=== PATIENT | female | born 1965 | race Two or more races ===

== ENCOUNTER 2021-11-10 11:23 | Outpatient (REF) | payer OTHER, SELFPAY ==
--- NOTE | ~2021-11-10 | XR_ITS ---
EXAMINATION: XR HAND, RIGHT CLINICAL INFORMATION: Pain COMPARISON: None TECHNIQUE: PA, lateral, and oblique views of the right hand. FINDINGS: The bones and soft tissues are normal. No fracture. Alignment is anatomic. Joint spaces are maintained. No erosions or soft tissue calcifications. XR/XR hand RT min 3V IMPRESSION: Normal right hand.
[2021-11-10 13:45] LABS: MANUAL DIFF FLAG NO
[2021-11-10 13:50] LABS: Basophils Percent Auto 0.2 % (0-2); Eosinophils Absolute Auto 0.2 X10*3/uL (0.0-0.4); Eosinophils Percent Auto 3.4 % (0-4); Hematocrit 41.7 % (37.0-47.0); Hemoglobin 13.5 g/dl (12.0-16.0); Imm Gran Abs Auto 0.01 X10*3/uL (0.00-0.03); Imm Gran Pct Auto 0.2 % (0.0-0.4); Lymphocytes Percent Auto 45.7 % (20-40); Mean Corpuscular HGB Conc 32.4 g/dl (31.0-35.0); Mean Corpuscular Hemoglobin 27.1 pg (27.0-33.0); Mean Corpuscular Volume 83.7 fL (80.0-98.0); Mean Platelet Volume 9.6 fL (9.4-12.3); Monocytes Absolute Auto 0.4 X10*3/uL (0.1-1.2); Monocytes Percent Auto 9.5 % (2-11); Neutrophils Absolute Auto 1.8 x10*3/uL (2.0-8.3); Platelet Count 278 X10*3/uL (160-400); Red Blood Count 4.98 X10*6/uL (4.20-5.50); White Blood Count 4.4 X10*3/uL (4.8-10.8)
[2021-11-10 14:06] LABS: Alanine Aminotransferase 24 U/L (0-31); Anion Gap 10 (12-20); Aspartate Amino Transferase 21 U/L (5-31); Blood Urea Nitrogen 14 mg/dL (9-16); Carbon Dioxide 29 mmol/L (22-29); Chloride 102 mmol/L (96-108); Cholesterol 227 mg/dL; Estimated Glomerular Filt Rate > 60; Glucose Fasting 97 mg/dL (60-99); HDL Cholesterol 50 mg/dL; LDL Cholesterol Calculated 164 mg/dl; Potassium 4.3 mmol/L (3.3-5.1); Sodium 137 mmol/L (135-145); Triglycerides 67 mg/dL
[2021-11-10 14:27] LABS: Free T4 (Free Thyroxine) 1.18 ng/dL (0.71-1.85); Vitamin D 25-OH Total 24.7 ng/mL (>30)
== END 2021-11-10 11:24 | disposition home or self-care (01) ==
LOC: HO.HMGCLDS 11:23
PROVIDERS: Visit Provider Internal Medicine
DX: Z00.01 Encounter for general adult medical examination with abnormal findings (principal); E03.9 Hypothyroidism, unspecified; Z78.0 Asymptomatic menopausal state
CPT/HCPCS: 36415; 73130; 80048; 80061; 82306; 84439; 84443; 84450; 84460; 85025

== ENCOUNTER 2022-01-09 09:31 | Outpatient (REF) | payer MEDICAID, SELFPAY ==
--- NOTE | ~2022-01-09 | MM_ITS ---
EXAMINATION: MM SCREENING DIGITAL BREAST TOMOSYNTHESIS, BILATERAL CLINICAL INFORMATION: Screening. Asymptomatic. Prior outside mammography currently unavailable. The lifetime risk of breast cancer based on the Tyrer-Cuzick Model is 8%. COMPARISON: None. TECHNIQUE: Digital breast tomosynthesis is performed in both the craniocaudal and mediolateral oblique views along with computer-aided detection (CAD). Synthesized 2D images are generated from the tomosynthesis. FINDINGS: There are scattered areas of fibroglandular density (ACR BI-RADS breast composition Category b). There are no significant masses, abnormal calcifications, or other abnormalities. No architectural abnormality. The axilla and skin contours are unremarkable. MM/MM tomosynthesis screening BI IMPRESSION: No mammographic evidence of malignancy. ASSESSMENT: BI-RADS 1: Negative RECOMMENDATION: 1. Routine annual mammography screening. 2. Radiology department staff will attempt to retrieve prior outside mammography to allow for comparison in an addendum report. This patient's information was entered into a reminder system with a target due date for their next mammogram.
== END 2022-01-09 09:32 | disposition home or self-care (01) ==
LOC: HO.MAMMO 09:31
PROVIDERS: PCP Internal Medicine; Visit Provider Internal Medicine
DX: Z12.31 Encounter for screening mammogram for malignant neoplasm of breast (principal)
CPT/HCPCS: 77063; 77067

== ENCOUNTER 2022-03-16 08:53 | Outpatient (REF) | payer MEDICAID, SELFPAY ==
[2022-03-16 12:14] LABS: Free T4 (Free Thyroxine) 1.15 ng/dL (0.71-1.85); Thyroid Stimulating Hormone 1.56 uIU/mL (0.32-4.0); Vitamin D 25-OH Total 50.4 ng/mL (>30)
== END 2022-03-16 08:54 | disposition home or self-care (01) ==
LOC: HO.HMGCLDS 08:53
PROVIDERS: PCP Internal Medicine; Visit Provider Internal Medicine
DX: E03.9 Hypothyroidism, unspecified (principal); E55.9 Vitamin D deficiency, unspecified
CPT/HCPCS: 36415; 82306; 84439; 84443

== ENCOUNTER 2022-03-30 09:00 | Outpatient (REF) | payer MEDICAID, SELFPAY ==
--- NOTE | ~2022-03-30 | XR_ITS ---
EXAMINATION: XR KNEE, LEFT CLINICAL INFORMATION: Pain left knee. COMPARISON: None TECHNIQUE: Four views of the left knee. FINDINGS: Bones and soft tissues are normal. No fracture or joint effusion. Alignment is anatomic. Joint spaces are well maintained. No abnormal soft tissue calcification. XR/XR knee LT 4V IMPRESSION: Unremarkable left knee.
== END 2022-03-30 09:01 | disposition home or self-care (01) ==
LOC: HO.HMGCX 09:00
PROVIDERS: Visit Provider Internal Medicine
DX: M25.562 Pain in left knee (principal)
CPT/HCPCS: 73564

== ENCOUNTER 2023-01-13 09:39 | Outpatient (REF) | payer MEDICAID, SELFPAY ==
--- NOTE | ~2023-01-13 | MM_ITS ---
EXAMINATION: MM SCREENING DIGITAL BREAST TOMOSYNTHESIS, BILATERAL CLINICAL INFORMATION: Screening. Asymptomatic. The lifetime risk of breast cancer based on the Tyrer-Cuzick Model is 6%. COMPARISON: Mammography: 01/09/2022; outside mammography 10/21/2020, 08/04/2019 ([place], [place]). TECHNIQUE: Digital breast tomosynthesis is performed in both the craniocaudal and mediolateral oblique views along with computer-aided detection (CAD). Synthesized 2D images are generated from the tomosynthesis. FINDINGS: There are scattered areas of fibroglandular density (ACR BI-RADS breast composition Category b). There are no significant masses, abnormal calcifications, or other abnormalities. Parenchymal pattern is similar to prior studies. There is no developing density or architectural abnormality. The axilla and skin contours are unremarkable. No significant changes. MM/MM tomosynthesis screening BI IMPRESSION: No mammographic evidence of malignancy. ASSESSMENT: BI-RADS 1: Negative RECOMMENDATION: Routine annual mammography screening. This patient's information was entered into a reminder system with a target due date for their next mammogram.
== END 2023-01-13 09:40 | disposition home or self-care (01) ==
LOC: HO.MAMMO 09:39
PROVIDERS: PCP Internal Medicine; Visit Provider Internal Medicine
DX: Z12.31 Encounter for screening mammogram for malignant neoplasm of breast (principal)
CPT/HCPCS: 77063; 77067

== ENCOUNTER 2023-05-29 07:45 | Outpatient (AMB) | payer BC, SELFPAY ==
[2023-05-29 08:02] VITALS: BP 120/70; PULSE 83; O2SAT 97; BMI 29.5
--- NOTE | 2023-05-29 08:02 | MHC.PC.OV ---
Vital Signs 05/29/23 08:02 Height 5 ft 4 in Weight 172 lb BMI 29.5 BP 120/70 Blood Pressure Location Lt brachial Position Sitting Pulse 83 Pulse Source Pulse Oximeter Pulse Oximetry (%) 97 Intake Visit Reasons: Annual PE Intake Note: pt is here for physical exam. patient had mammorgam done on 01/13/23, due for pap, patient states she completed the stool sample sent to her home for colorectal screening and that Dr. Moody is aware Microgrinder Operator Required: No Accompanied by: Self / Same As Patient Post menopausal: Yes Allergies No Known Allergies Allergy (Verified 05/31/23 01:17) Medication List - Last Reconciled 05/31/23 by Jumana Rey MD cholecalciferol (vitamin D3) 1,250 mcg PO QWEEK 3 months levothyroxine 75 mcg PO DAILY Tobacco use date assessed: 05/29/23 Dental Screening Dental Screen Date: 05/29/23 Did you have a dental visit in the last 12 months?: Yes Did you have a dental problem in the last 6 months where you did not have access to dental care?: No Was dental information given to patient?: Patient has dentist HPI Annual PE HPI Details 58-year-old lady, here today for physical exam . She has hypothyroidism currently on levothyroxine 75 mcg daily and history of vitamin-D deficiency, and dyslipidemia . She is up-to-date with her screening mammogram, due for her Pap and screening colonoscopy. She has had her COVID booster including the bivalent vaccine gets yearly flu shots but has not yet had her Tdap, She has been having more weeks and episodes of flashes, and joint pains mainly in fingers of both hands and states as well as in her knees. Patient states that she used this way when her thyroid is off . [facility] Medical History (Updated 05/29/23 @ 08:56 by Jumana Rey MD) Acquired hypothyroidism Annual visit for general adult medical examination with abnormal findings Distal paresthesia Dyslipidemia History of vitamin D deficiency Hx of dysfunctional uterine bleeding Vasomotor symptoms due to menopause Surgical History H/O tubal ligation Family History (Updated 05/31/23 @ 01:21 by Jumana Rey MD) Brother Substance use disorder Liver cirrhosis Paternal Grandmother Diabetes mellitus CAD (coronary artery disease), Onset Age: 90 Maternal Aunt Hypothyroidism Daughter Hyperthyroidism Maternal Grandmother Diabetes mellitus Daughter Bipolar 1 disorder Maternal Uncle Bipolar 1 disorder Father Alcoholism Sister Rheumatoid arthritis Hypothyroidism Chronic interstitial cystitis Anxiety disorder Social History Housing: House Alcohol intake: current Alcohol intake frequency: holidays/special occasions only Patient Tobacco Use Status: Never used Tobacco e-Cigarette/Vaping Use: Never Used service: No Current occupational status: employed Cognitive needs: No Hearing needs: No Vision needs: Yes Female Reproductive History Menstrual control method: none Date of Mammogram: 01/13/23 History of abnormal mammogram: No Questionnaire PHQ-9 Over the last 2 weeks, how often have you been bothered by any of the following problems? 1. Little interest or pleasure in doing things: not at all 2. Feeling down, depressed, or hopeless: not at all 3. Trouble falling or staying asleep, or sleeping too much: not at all 4. Feeling tired or having little energy: not at all 5. Poor appetite or overeating: not at all 6. Feeling bad about yourself - or that you are a failure or have let yourself or your family down: not at all 7. Trouble concentrating on things, such as reading the newspaper or watching television: not at all 8. Moving or speaking so slowly that other people could have noticed. Or the opposite - being so fidgety or restless that you have been moving around a lot more than usual: not at all 9. Thoughts that you would be better off or of hurting yourself in some way: not at all Total score: 0 Depression Screening Interpretation: Negative 54652 - PHQ-9 Billing: Yes Source: Developed by Drs. Delon Garcia, Chyna Acosta, Maximilian Mcmahon and colleagues, with an educational dereje from [employer] Thrive Questionnaire Date Thrive assessed: 05/29/23 I am a: Patient What is your living situation today?: I have a steady place to live Within the past 12 months, did the food you bought not last and you didn't have the money to get more?: Never true Within the past 12 months, did you worry whether your food would run out before you got money to buy more?: Never true Do you have trouble paying for medicines?: No Do you have trouble getting transportation to medical appointments?: No Do you have trouble paying your heating and electricity bill?: No Do you have trouble taking care of your child, family member or friend?: No Do you have trouble with day-to-day activities such as bathing, preparing meals, shopping, managing finances, etc.?: No Are you currently unemployed and looking for a job?: No Are you interested in more education?: No Please select the resources that you would like help with: None Currently or been in a relationship where the following occur: no concerns reported HENRY-7 AMB Questionnaire HENRY-7 Date HENRY - 7 assessed: 05/29/23 Feeling nervous, anxious, or on edge: 0 = Not at all Not being able to stop or control worryin = Not at all Worrying too much about different things: 0 = Not at all Trouble relaxin = Not at all Being so restless that it is hard to sit still: 0 = Not at all Becoming easily annoyed or irritable: 0 = Not at all Feeling afraid as if something awful might happen: 0 = Not at all Total HENRY-7 score (0-4 normal; 5-9 mild; 10-14 moderate; 15-21 severe): 0 Source: Developed by Drs. Delon Garcia, Chyna Acosta, Maximilian Mcmahon and colleagues, with an educational dereje from [employer] HENRY-7 Assessment Billing HENRY-7 Assessment Tool: HENRY-7 Assessment [id number] Review of Systems Const Denies body aches, Denies fatigue, Denies fever(s), Denies headache(s) and Denies weakness Eyes Reports blurry vision (For near vision only) and Denies change in vision ENT Denies dizziness, Denies headache(s), Denies nasal congestion, Denies nasal discharge and Denies sore throat Card Denies chest pain, Denies lightheadedness, Denies palpitations and Denies dyspnea Resp Denies chest congestion, Denies cough, Denies dyspnea and Denies wheezing GI Denies abdominal pain, Denies change in bowel habits and Denies heartburn Denies hematuria, Denies urinary frequency, Denies dysuria and Denies urinary urgency Musc Details: Recurrent paresthesias in fingers of both hands worse at night, recurrent pain in left knee Skin/Breast Denies breast pain, Denies breast mass, Denies lesions and Denies rash Neuro Denies dizziness, Denies headache(s) and Denies weakness Psych Reports no additional complaints and Reports as per HPI Endo Denies fatigue, Reports flushing (Recurrent over the last 2 months, at least 7 a day), Denies polydipsia, Denies polyuria and Denies palpitations Renard/Lymph Denies easy bruising Aller/Immun Denies seasonal rhinorrhea and Denies wheezing Physical exam (Primary Care) Vital Signs: Last Vital Signs Pulse 83 05/29/23 08:02 BP 120/70 05/29/23 08:02 Pulse Ox 97 05/29/23 08:02 BMI result Body Mass Index 29.5 Tobacco/Smoking Status: Tobacco use Status Tobacco use date assessed 05/29/23 05/29/23 08:06 Patient Tobacco Use Status Never used Tobacco 05/29/23 08:02 e-Cigarette/Vaping Use Never Used 05/29/23 08:02 PHQ-9: PHQ-9 Score PHQ-9: Total score 0 05/31/23 01:16 Depression Screening Interpretation: Negative Thrive Assessment: Date of Thrive Assessment Date Thrive assessed 05/29/23 05/29/23 08:10 Currently or been in a relationship where the following occur: no concerns reported Const Other: Alert oriented x3, no acute distress Orientation/consciousness: patient oriented x3 [facility] Head: Yes normocephalic and Yes atraumatic Ears: hearing grossly normal bilaterally, TM's normal bilaterally and EAC's normal General nose exam: Normal external nose present Face and sinus: Yes face symmetric Mouth: Normal oral and palatal mucosa present and moist mucous membranes Eyes General: appearance normal, both eyes and all related structures Neck Other: Supple, no lymphadenopathy palpated, thyroid gland nontender, nonpalpable Chest Breast/axilla palpation: normal palpation of the breasts Resp Other: Clear to auscultation bilaterally Cardio Other: S1-S2 present regular rate and rhythm, no murmurs GI Other: Above sounds, soft, nontender, no mass palpated Other: Referred to OBGYN routine Pap pelvic exam General: Yes deferred Back/Spine/Pelvis Back: No back tenderness Skin General skin exam: no rashes or lesions noted Neuro General: patient oriented x3, gait normal, tone normal, moves all extremities, Normal light touch and pain sensation, no focal motor deficits and CN's II-XI intact bilaterally Extrem Other: No gross bone deformity or joint swelling seen, negative Tinel's or Phalen sign General: Yes full ROM, Yes no joint enlargement and Yes normal gait Psych Appearance: grossly normal Mental Status: mental status grossly normal Speech and movement: Normal speech and movement present Affect: normal affect Attitude: cooperative Thought process: Normal thought process present Assessment and Plan Assessment & Plan (1) History of vitamin D deficiency: Code(s): Z86.39 - Personal history of other endocrine, nutritional and metabolic disease Plan: Currently taking vitamin-D 3 supplements, will check vitamin-D level (2) Distal paresthesia: Code(s): R20.2 - Paresthesia of skin Plan: 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 stressed importance of following a low-cholesterol diet and regular exercise, at least 30 minutes 3 to 4 times a week. Advised patient to make healthy food choices, eat more fruits, vegetables, whole grains, wild caught fish and low-fat dairy. Limit amount of meat and fried or fatty food products, as well as processed foods and fast foods. (4) Acquired hypothyroidism: Code(s): E03.9 - Hypothyroidism, unspecified Plan: Currently on levothyroxine 75 mcg daily, will check thyroid levels and thyroid peroxidase antibody (5) Cervical cancer screening: Code(s): Z12.4 - Encounter for screening for malignant neoplasm of cervix Plan: Referred to [facility] [place] [facility] for her routine Pap and pelvic exam (6) Vasomotor symptoms due to menopause: Code(s): N95.1 - Menopausal and female climacteric states (7) Annual visit for general adult medical examination with abnormal findings: Code(s): Z00.01 - Encounter for general adult medical examination with abnormal findings Plan: Will check appropriate labs. Recommended dental visit every 6 months and regular eye exams, at least every 2 years. Take adequate calcium in diet and vitamin-D 3 at 2000 IU per cap once a day, in addition to weight-bearing exercises to help maintain good muscle tone and weight control. Instructed to do self-breast exam, and continue with yearly mammogram, currently up-to-date, referred to OBGYN at [facility] [place] for her routine Pap and pelvic exam. Immunization information provided: Yearly flu vaccine, shingles vaccine starting at age 50, at age 65 to start getting Prevnar 13 followed 1 year later by Pneumovax 23. Colonoscopy Orders: Orders Alanine Aminotransferase 05/29/23 E03.9 - Hypothyroidism, unspecified, E78.5 - Hyperlipidemia, unspecified, R20.2 - Paresthesia of skin, Z86.39 - Personal history of other endocrine, nutritional and metabolic disease Aspartate Amino Transferase 05/29/23 E03.9 - Hypothyroidism, unspecified, E78.5 - Hyperlipidemia, unspecified, R20.2 - Paresthesia of skin, Z86.39 - Personal history of other endocrine, nutritional and metabolic disease Vitamin B12 and Folate 05/29/23 E03.9 - Hypothyroidism, unspecified, E78.5 - Hyperlipidemia, unspecified, R20.2 - Paresthesia of skin, Z86.39 - Personal history of other endocrine, nutritional and metabolic disease Basic Metabolic Panel Fasting 05/29/23 E03.9 - Hypothyroidism, unspecified, E78.5 - Hyperlipidemia, unspecified, R20.2 - Paresthesia of skin, Z86.39 - Personal history of other endocrine, nutritional and metabolic disease Lipid Panel 05/29/23 E03.9 - Hypothyroidism, unspecified, E78.5 - Hyperlipidemia, unspecified, R20.2 - Paresthesia of skin, Z86.39 - Personal history of other endocrine, nutritional and metabolic disease Free T4 (Free Thyroxine) 3 Months E03.9 - Hypothyroidism, unspecified, E78.5 - Hyperlipidemia, unspecified, R20.2 - Paresthesia of skin, Z86.39 - Personal history of other endocrine, nutritional and metabolic disease Thyroid Stimulating Hormone 05/29/23 E03.9 - Hypothyroidism, unspecified, E78.5 - Hyperlipidemia, unspecified, R20.2 - Paresthesia of skin, Z86.39 - Personal history of other endocrine, nutritional and metabolic disease Vitamin D 25-OH Total 05/29/23 E03.9 - Hypothyroidism, unspecified, E78.5 - Hyperlipidemia, unspecified, R20.2 - Paresthesia of skin, Z86.39 - Personal history of other endocrine, nutritional and metabolic disease Complete Blood Count Auto Diff 05/29/23 E03.9 - Hypothyroidism, unspecified, E78.5 - Hyperlipidemia, unspecified, R20.2 - Paresthesia of skin, Z86.39 - Personal history of other endocrine, nutritional and metabolic disease Thyroid Peroxidase Antibodies 05/29/23 E03.9 - Hypothyroidism, unspecified, E78.5 - Hyperlipidemia, unspecified, R20.2 - Paresthesia of skin, Z86.39 - Personal history of other endocrine, nutritional and metabolic disease Creatine Kinase Total 05/29/23 E03.9 - Hypothyroidism, unspecified, E78.5 - Hyperlipidemia, unspecified, R20.2 - Paresthesia of skin, Z86.39 - Personal history of other endocrine, nutritional and metabolic disease CRP High Sensitivity 05/29/23 E03.9 - Hypothyroidism, unspecified, E78.5 - Hyperlipidemia, unspecified, R20.2 - Paresthesia of skin, Z86.39 - Personal history of other endocrine, nutritional and metabolic disease Rheumatoid Factor 05/29/23 E03.9 - Hypothyroidism, unspecified, E78.5 - Hyperlipidemia, unspecified, R20.2 - Paresthesia of skin, Z86.39 - Personal history of other endocrine, nutritional and metabolic disease Erythrocyte Sedimentation Rate 05/29/23 E03.9 - Hypothyroidism, unspecified, E78.5 - Hyperlipidemia, unspecified, R20.2 - Paresthesia of skin, Z86.39 - Personal history of other endocrine, nutritional and metabolic disease Referrals Cologuard Test Z12.11 - Encounter for screening for malignant neoplasm of colon, Z12.12 - Encounter for screening for malignant neoplasm of rectum WELD INSPECTOR Referral Z12.4 - Encounter for screening for malignant neoplasm of cervix Coding Level of Care Code Est Pt Prev Care 40-64y([id number]) Diagnoses History of vitamin D deficiency Z86.39 Distal paresthesia R20.2 Dyslipidemia E78.5 Acquired hypothyroidism E03.9 Cervical cancer screening Z12.4 Vasomotor symptoms due to menopause N95.1 Annual visit for general adult medical examination with abnormal findings Z00.01 Additional Codes HENRY-7 Assessment Billing - HENRY-7 Assessment Tool: HENRY-7 Assessment [id number] ([id number])
== END 2023-05-29 08:44 | disposition home or self-care (01) ==
PROVIDERS: PCP Internal Medicine; Visit Provider Internal Medicine
DX: Z00.00 Encounter for general adult medical examination without abnormal findings (principal); Z86.39 Personal history of other endocrine, nutritional and metabolic disease; E03.9 Hypothyroidism, unspecified; R20.2 Paresthesia of skin; E78.5 Hyperlipidemia, unspecified; N95.1 Menopausal and female climacteric states
CPT/HCPCS: 99396

== ENCOUNTER 2023-05-29 08:44 | Outpatient (REF) | payer BC, OTHER, SELFPAY ==
[2023-05-29 11:17] LABS: MANUAL DIFF FLAG NO
[2023-05-29 11:30] LABS: Basophils Percent Auto 0.8 % (0-2); Eosinophils Absolute Auto 0.2 X10*3/uL (0.0-0.4); Eosinophils Percent Auto 5.1 % (0-4); Hematocrit 42.2 % (37.0-47.0); Hemoglobin 13.7 g/dl (12.0-16.0); Imm Gran Abs Auto 0.01 X10*3/uL (0.00-0.03); Imm Gran Pct Auto 0.3 % (0.0-0.4); Lymphocytes Absolute Auto 1.6 X10*3/uL (1.2-4.9); Lymphocytes Percent Auto 40.9 % (20-40); Mean Corpuscular HGB Conc 32.5 g/dl (31.0-35.0); Mean Corpuscular Volume 86.1 fL (80.0-98.0); Mean Platelet Volume 10.1 fL (9.4-12.3); Monocytes Absolute Auto 0.3 X10*3/uL (0.1-1.2); Monocytes Percent Auto 8.1 % (2-11); Neutrophils Absolute Auto 1.8 x10*3/uL (2.0-8.3); Neutrophils Percent Auto 44.8 % (45-73); Platelet Count 279 X10*3/uL (160-400); Red Cell Distribution Width 12.8 % (11.0-16.0); White Blood Count 3.9 X10*3/uL (4.8-10.8)
[2023-05-29 12:03] LABS: Alanine Aminotransferase 23 U/L (0-31); Anion Gap 13 (12-20); Aspartate Amino Transferase 24 U/L (5-31); Blood Urea Nitrogen 11 mg/dL (9-16); Calcium 9.7 mg/dL (8.4-10.2); Carbon Dioxide 25 mmol/L (22-29); Chloride 106 mmol/L (96-108); Cholesterol 231 mg/dL; Estimated Glomerular Filt Rate > 60; Glucose Fasting 96 mg/dL (60-99); HDL Cholesterol 52 mg/dL; LDL Cholesterol Calculated 159 mg/dl; Potassium 4.5 mmol/L (3.3-5.1); Sodium 139 mmol/L (135-145); Triglycerides 102 mg/dL
[2023-05-29 12:08] LABS: Erythrocyte Sedimentation Rate 20 MM/HR (0-20); Thyroid Stimulating Hormone 9.83 uIU/mL (0.32-4.0); Vitamin D 25-OH Total 37.1 ng/mL (>30)
[2023-05-29 12:17] LABS: Rheumatoid Factor 18.6 IU/mL (<15.0)
[2023-05-29 12:30] LABS: Folate 12.6 ng/mL (> or = 4.0); Vitamin B12 460 pg/mL (200-900)
[2023-05-30 15:54] LABS: CRP High Sensitivity 1.8 mg/L
[2023-05-31 01:18] LABS: Thyroid Peroxidase Antibodies 673 IU/mL (<9)
[2023-05-31 09:40] LABS: Free T4 (Free Thyroxine) 0.91 ng/dL (0.71-1.85)
== END 2023-05-29 08:45 | disposition home or self-care (01) ==
LOC: HO.HMGCLDS 08:44
PROVIDERS: PCP Internal Medicine; Visit Provider Internal Medicine
DX: E03.9 Hypothyroidism, unspecified (principal); R20.2 Paresthesia of skin; E78.5 Hyperlipidemia, unspecified; E55.9 Vitamin D deficiency, unspecified; Z86.39 Personal history of other endocrine, nutritional and metabolic disease
CPT/HCPCS: 36415; 80048; 80061; 82306; 82550; 82607; 82746; 84439; 84443; 84450; 84460; 85025; 85652; 86141; 86376; 86431

== ENCOUNTER 2023-08-18 09:15 | Outpatient (REF) | payer BC, OTHER, SELFPAY ==
[2023-08-18 11:50] LABS: Free T4 (Free Thyroxine) 1.02 ng/dL (0.71-1.85); Thyroid Stimulating Hormone 4.11 uIU/mL (0.32-4.0)
[2023-08-20 18:03] LABS: Thyroid Peroxidase Antibodies 796 IU/mL (<9)
== END 2023-08-18 09:16 | disposition home or self-care (01) ==
LOC: HO.HMGCLDS 09:15
PROVIDERS: PCP Internal Medicine; Visit Provider Internal Medicine
DX: E03.9 Hypothyroidism, unspecified (principal); R20.2 Paresthesia of skin; E78.5 Hyperlipidemia, unspecified; Z86.39 Personal history of other endocrine, nutritional and metabolic disease
CPT/HCPCS: 36415; 84439; 84443; 86376

== ENCOUNTER 2023-11-03 08:56 | Outpatient (REF) | payer BC, SELFPAY ==
[2023-11-03 12:09] LABS: Free T4 (Free Thyroxine) 1.04 ng/dL (0.71-1.85)
[2023-11-03 12:11] LABS: TSH reflex Free T4 2.82 uIU/mL (0.32-4.0)
== END 2023-11-03 08:57 | disposition home or self-care (01) ==
LOC: HO.HMGCLDS 08:56
PROVIDERS: PCP Internal Medicine; Referring Provider Nurse Practitioner Family; Visit Provider Internal Medicine
DX: E03.9 Hypothyroidism, unspecified (principal)
CPT/HCPCS: 36415; 84439; 84443

== ENCOUNTER 2023-12-22 08:43 | Outpatient (REF) | payer BC, SELFPAY ==
[2023-12-22 12:32] LABS: Cholesterol 205 mg/dL (<200); HDL Cholesterol 49 mg/dL (>40); LDL Cholesterol Calculated 145 mg/dL (<100); Triglycerides 59 mg/dL (<150)
[2023-12-22 12:33] LABS: Free T4 (Free Thyroxine) 1.12 ng/dL (0.71-1.85); Thyroid Stimulating Hormone 1.19 uIU/mL (0.32-4.0)
[2023-12-24 12:53] LABS: Thyroid Peroxidase Antibodies 662 IU/mL (<9)
== END 2023-12-22 08:44 | disposition home or self-care (01) ==
LOC: HO.HMGCLDS 08:43
PROVIDERS: PCP Internal Medicine; Visit Provider Internal Medicine
DX: E03.9 Hypothyroidism, unspecified (principal); E78.5 Hyperlipidemia, unspecified
CPT/HCPCS: 36415; 80061; 84439; 84443; 86376

== ENCOUNTER 2023-12-26 08:03 | Outpatient (AMB) | payer BC, OTHER, SELFPAY ==
--- NOTE | 2023-12-26 09:07 | A.OFFPC_ITS ---
Vital Signs 12/26/23 09:08 Height 5 ft 4 in Weight 179 lb BMI 30.7 BP 132/80 Blood Pressure Location Lt brachial Position Sitting Pulse 77 Pulse Source Pulse Oximeter Pulse Oximetry (%) 97 Oxygen Delivery Method Room Air Intake Visit Reasons: Acquired hypothyroidism Intake Note: Pt is here today to f/u thyroid Allergies No Known Allergies Allergy (Verified 12/26/23 09:51) Medication List - Last Reconciled 12/26/23 by Jumana Rey MD levothyroxine 100 mcg PO DAILY Tobacco use date assessed: 12/26/23 Dental Screening Dental Screen Date: 12/26/23 Did you have a dental visit in the last 12 months?: Yes Did you have a dental problem in the last 6 months where you did not have access to dental care?: No Was dental information given to patient?: Patient has dentist HPI Acquired hypothyroidism HPI Details 58-year-old lady here today for follow-u p on her hypothyroidism. Currently on levothyroxine 50 mcg daily taken once a day in the morning before breakfast. Has been feeling well on current dose. Has hyperlipidemia, trying to follow a low-cholesterol diet and has started exercising regularly. Recent fasting labs showed LDL cholesterol at 145 mg/dL, but lower than last check. Thyroid levels are within normal limits. [facility] Medical History Rheumatoid factor positive Annual visit for general adult medical examination with abnormal findings Vasomotor symptoms due to menopause Distal paresthesia History of vitamin D deficiency Dyslipidemia Hx of dysfunctional uterine bleeding Acquired hypothyroidism Surgical History H/O tubal ligation Family History Brother Substance use disorder Liver cirrhosis Paternal Grandmother Diabetes mellitus CAD (coronary artery disease), Onset Age: 90 Maternal Aunt Hypothyroidism Daughter Hyperthyroidism Maternal Grandmother Diabetes mellitus Daughter Bipolar 1 disorder Maternal Uncle Bipolar 1 disorder Father Alcoholism Sister Rheumatoid arthritis Hypothyroidism Chronic interstitial cystitis Anxiety disorder Social History Housing: House Alcohol intake: current Alcohol intake frequency: holidays/special occasions only Patient Tobacco Use Status: Never used Tobacco e-Cigarette/Vaping Use: Never Used service: No Current occupational status: employed Cognitive needs: No Hearing needs: No Vision needs: Yes Questionnaire PHQ-9 Over the last 2 weeks, how often have you been bothered by any of the following problems? 1. Little interest or pleasure in doing things: not at all 2. Feeling down, depressed, or hopeless: not at all 3. Trouble falling or staying asleep, or sleeping too much: not at all 4. Feeling tired or having little energy: not at all 5. Poor appetite or overeating: not at all 6. Feeling bad about yourself - or that you are a failure or have let yourself or your family down: not at all 7. Trouble concentrating on things, such as reading the newspaper or watching television: not at all 8. Moving or speaking so slowly that other people could have noticed. Or the opposite - being so fidgety or restless that you have been moving around a lot more than usual: not at all 9. Thoughts that you would be better off or of hurting yourself in some way: not at all Total score: 0 Depression Screening Interpretation: Negative Depression Screening Done: Yes 55727 - PHQ-9 Billing: Yes Source: Developed by Drs. Delon Garcia, Chyna Acosta, Maximilian Mcmahon and colleagues, with an educational dereje from [employer]. Thrive Questionnaire Date Thrive assessed: 05/29/23 I am a: Patient What is your living situation today?: I have a steady place to live Within the past 12 months, did the food you bought not last and you didn't have the money to get more?: Sometimes True Within the past 12 months, did you worry whether your food would run out before you got money to buy more?: Sometimes True Do you have trouble paying for medicines?: No Do you have trouble getting transportation to medical appointments?: No Do you have trouble paying your heating and electricity bill?: Yes Do you have trouble taking care of your child, family member or friend?: No Do you have trouble with day-to-day activities such as bathing, preparing meals, shopping, managing finances, etc.?: No Are you currently unemployed and looking for a job?: No Are you interested in more education?: No Currently or been in a relationship where the following occur: no concerns reported THRIVE Score: 3 AUDIT C Alcohol Use Questionnaire (AUDIT-C) 1. How often do you have a drink containing alcohol?: Monthly or less 2. How many drinks containing alcohol do you have on a typical day when you are drinking?: 3 or 4 3. How often do you have six or more drinks on one occasion?: Never Total Score: 2 HNERY-7 AMB Questionnaire HENRY-7 Date HENRY - 7 assessed: 12/26/23 Feeling nervous, anxious, or on edge: 0 = Not at all Not being able to stop or control worryin = Not at all Worrying too much about different things: 0 = Not at all Trouble relaxin = Not at all Being so restless that it is hard to sit still: 0 = Not at all Becoming easily annoyed or irritable: 0 = Not at all Feeling afraid as if something awful might happen: 0 = Not at all Total HENRY-7 score (0-4 normal; 5-9 mild; 10-14 moderate; 15-21 severe): 0 Source: Developed by Drs. Delon Garcia, Chyna Acosta, Maximilian Mcmahon and colleagues, with an educational dereje from [employer]. HENRY-7 Assessment Billing HENRY-7 Assessment Tool: HENRY-7 Assessment 03560 Review of Systems Const Denies body aches, Denies fatigue, Denies headache(s) and Denies weakness Eyes Reports blurry vision (For near vision only) and Denies change in vision ENT Denies dizziness, Denies headache(s), Denies nasal congestion, Denies nasal discharge and Denies sore throat Card Denies chest pain, Denies lightheadedness, Denies palpitations and Denies dyspnea Resp Denies chest congestion, Denies cough, Denies dyspnea and Denies wheezing GI Denies abdominal pain, Denies change in bowel habits and Denies heartburn Denies hematuria, Denies urinary frequency, Denies dysuria and Denies urinary urgency Skin/Breast Denies breast pain, Denies breast mass, Denies lesions and Denies rash Neuro Denies dizziness, Denies headache(s) and Denies weakness Psych Reports no additional complaints and Reports as per HPI Endo Denies fatigue, Reports flushing (Recurrent over the last 2 months, at least 7 a day), Denies polydipsia, Denies polyuria and Denies palpitations Renard/Lymph Denies easy bruising Aller/Immun Denies seasonal rhinorrhea and Denies wheezing Physical exam (Primary Care) Vital Signs: Last Vital Signs Pulse 77 12/26/23 09:08 BP 132/80 12/26/23 09:08 Pulse Ox 97 12/26/23 09:08 Oxygen Delivery Method Room Air 12/26/23 09:08 BMI result Body Mass Index 30.7 Tobacco/Smoking Status: Tobacco use Status Tobacco use date assessed 12/26/23 12/26/23 09:16 Patient Tobacco Use Status Never used Tobacco 12/26/23 09:10 e-Cigarette/Vaping Use Never Used 12/26/23 09:10 PHQ-9: PHQ-9 Score PHQ-9: Total score 0 12/26/23 10:00 Depression Screening Interpretation: Negative Thrive Assessment: Date of Thrive Assessment Date Thrive assessed 05/29/23 12/26/23 09:10 Currently or been in a relationship where the following occur: no concerns reported Const Other: Alert oriented x3, no acute distress Orientation/consciousness: patient oriented x3 HENMS Head: Yes normocephalic Ears: hearing grossly normal bilaterally, TM's normal bilaterally and EAC's normal General nose exam: Normal external nose present Face and sinus: Yes face symmetric Mouth: Normal oral and palatal mucosa present and moist mucous membranes Eyes General: appearance normal, both eyes and all related structures Neck Other: Supple, no lymphadenopathy palpated, thyroid gland nontender, nonpalpable Resp Other: Clear to auscultation bilaterally Cardio Other: S1-S2 present regular rate and rhythm, no murmurs GI Other: Above sounds, soft, nontender, no mass palpated Other: Referred to OBGYN routine Pap pelvic exam Back/Spine/Pelvis Back: No back tenderness Skin General skin exam: no rashes or lesions noted Neuro General: patient oriented x3, gait normal, tone normal, moves all extremities, Normal light touch and pain sensation, no focal motor deficits and CN's II-XI intact bilaterally Extrem Other: No gross bone deformity or joint swelling seen, negative Tinel's or Phalen sign General: Yes full ROM, Yes no joint enlargement and Yes normal gait Results Reviewed Results Reviewed: maria g: Trisha Myrick I Age/Sex: 58/[facility] 1965 [id number] [id number] Attend Dr: Jumana Rey MD Re12/22/23 Status: DEP REF Location: [facility] Disch: SPEC : [id number] BABITA: 12/22/23 STATUS: COMP REQ : [id number] RECD: 12/22/23-[address]: Jumana Rey MD COMP: 12/22/23 ENTERED: 12/22/[address]: ORDERED: Lipid Panel, Free T4, TSH Test Result Flag Reference Triglyceride 59 <150 mg/dL Desirable Triglyceride: less than 150 mg/dL Borderline High Triglyceride 150-199 mg/dL High Triglyceride: 200-499 mg/dL Very High Triglyceride: greater than or equal to 5OO mg/dL Cholesterol 205 H <200 mg/dL Desirable Cholesterol: less than 200 mg/dL Borderline High Cholesterol: 200-239 mg/dL High Cholesterol: greater than 239 mg/dL LDL Calculated 145 H <100 mg/dL Desirable LDL: less than 100 mg/dL Near Optimal/Above Optimal LDL: 110-129 mg/dL Borderline High LDL: 130-159 mg/dL High LDL: 160-189 mg/dL Very High LDL: greater than or equal to 190 mg/dL HDL 49 >40 mg/dL Desirable HDL: greater than 40 mg/dL Note: This HDL assay may give artificially low results in patients with liver disease. Free T4 1.12 0.71-1.85 ng/dL TSH 3rd Gen. 1.19 0.32-4.0 uIU/mL TSH 3rd Generation ([facility]) Assessment and Plan Assessment & Plan (1) Acquired hypothyroidism: Code(s): E03.9 - Hypothyroidism, unspecified Plan: Latest thyroid function tests are within normal limits, continue current dose of levothyroxine 100 mcg daily in taken in the morning before breakfast. Prescription refill sent (2) Dyslipidemia: Code(s): E78.5 - Hyperlipidemia, unspecified Plan: Improvement noted in her LDL cholesterol as composed last check. Continue with adherence to healthy eating habits and regular exercise. Medications: Refilled levothyroxine Take in AM, an hour before breakfast, only with a glass of water 100 mcg PO DAILY 90 tabs 4RF Coding Level of Care Code Est Pt Level 3 (23714) Diagnoses Acquired hypothyroidism E03.9 Dyslipidemia E78.5 Additional Codes HENRY-7 Assessment Billing - HENRY-7 Assessment Tool: HERNY-7 Assessment 16711 ([id number])
[2023-12-26 09:08] VITALS: BP 132/80; PULSE 77; O2SAT 97; BMI 30.7
== END 2023-12-26 11:51 | disposition home or self-care (01) ==
PROVIDERS: PCP Internal Medicine; Visit Provider Internal Medicine
DX: E03.9 Hypothyroidism, unspecified (principal); E78.5 Hyperlipidemia, unspecified
CPT/HCPCS: 99213

== ENCOUNTER 2024-04-11 12:58 | Outpatient (REF) | payer BC, OTHER, SELFPAY ==
[2024-04-15 14:23] LABS: HPV mRNA E6/E7 Not Detected (Not Detected)
== END 2024-04-11 12:59 | disposition home or self-care (01) ==
LOC: HO.LNP 12:58
PROVIDERS: PCP Internal Medicine; Visit Provider Advanced Practice Midwife
DX: Z01.419 Encounter for gynecological examination (general) (routine) without abnormal findings (principal); Z11.51 Encounter for screening for human papillomavirus (HPV)
CPT/HCPCS: 87624; 88175

== ENCOUNTER 2024-04-11 12:58 | Outpatient (AMB) | payer BC, OTHER, SELFPAY ==
[2024-04-11 12:59] VITALS: BP 120/84; BMI 29.8
--- NOTE | 2024-04-11 12:59 | A.OFFVIS_ITS ---
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 She is doing well with concerns: Since COVID a year ago she has been coughing and did causes pain on her left side of the abdomen. Attempting to eat a healthy diet with calcium and vitamin D and stays active with exercise-walks at work. Currently not sexually active with partner. Denies any irritation. STI testing offered; she declines. Last pap smear; <5yrs. ago all normal. Last mammogram; 2022. Colonoscopy is UTD. Denies any family history of ovarian or colon cancer. Family history of maternal aunt with breast cancer. [facility] Medical History Rheumatoid factor positive Annual visit for general adult medical examination with abnormal findings Vasomotor symptoms due to menopause Distal paresthesia History of vitamin D deficiency Dyslipidemia Hx of dysfunctional uterine bleeding Acquired hypothyroidism Surgical History H/O tubal ligation Family History (Updated 04/11/24 @ 13:21 by Emilie Chandra CNM) Brother Substance use disorder Liver cirrhosis Paternal Grandmother Diabetes mellitus CAD (coronary artery disease), Onset Age: 90 Maternal Aunt Hypothyroidism Breast cancer Daughter Hyperthyroidism Maternal Grandmother Diabetes mellitus Daughter Bipolar 1 disorder Maternal Uncle Bipolar 1 disorder Father Alcoholism Sister Rheumatoid arthritis Hypothyroidism Chronic interstitial cystitis Anxiety disorder Social History Housing: House Alcohol intake: current Alcohol intake frequency: holidays/special occasions only Patient Tobacco Use Status: Never used Tobacco e-Cigarette/Vaping Use: Never Used service: No Current occupational status: employed Cognitive needs: No Hearing needs: No Vision needs: Yes Female Reproductive History Menstrual control method: none History of abnormal pap smear: No History of STI: No Date of Mammogram: 01/13/23 History of abnormal mammogram: Yes Review of Systems Const All systems reviewed & are unremarkable except as noted in HPI and below Reports as per HPI Eyes Reports no additional complaints ENT Reports no additional complaints Card Reports no additional complaints Resp Reports no additional complaints GI Reports as per HPI and Reports no additional complaints Reports as per HPI Musc Reports no additional complaints Skin/Breast Reports as per HPI Neuro Reports no additional complaints Psych Reports no additional complaints Endo Reports no additional complaints Renard/Lymph Reports no additional complaints Aller/Immun Reports no additional complaints Physical Exam Vital Signs: Last Vital Signs BP 120/84 04/11/24 12:59 BMI result Body Mass Index 29.8 Const General: cooperative, healthy appearing, no acute distress, well developed and alert Orientation/consciousness: patient oriented x3 HEENT Head: Yes normal to inspection Eyes General: appearance normal, both eyes and all related structures Neck Neck: Yes normal visual inspection Thyroid: Thyroid normal Chest Chest palpation & inspection: normal inspection of the chest and other (no puckering, dimpling, peau de orange, retraction, discharge, masses) Breast/axilla inspection: normal inspection of the breasts Breast/axilla palpation: normal palpation of the breasts Resp Effort & Inspection: normal respiratory effort GI Inspection: Yes normal to inspection Palpation (GI): Soft to palpation Rectal Exam - Female: deferred General: Yes bladder normal to palpation External Female Exam: normal external appearance and normal appearance of the urethra Speculum Exam - Vagina: normal appearance of the vagina, normal palpation, normal vaginal discharge and vagina atrophic Speculum Exam - Cervix: normal appearance of the cervix, normal palpation and Other cervical findings present (Atrophic changes bled very slightly with Pap) Bimanual exam- vagina & uterus: normal bimanual exam, normal palpation, uterine size normal, bladder normal to palpation, normal palpation and non-tender Bimanual Exam- Adnexa, other: no masses Skin General skin exam: no rashes or lesions noted Rashes: no rashes Neuro General: patient oriented x3 Cognition (Neuro): normal cognition Extrem General: Yes normal to inspection Psych Attitude: cooperative Thought process: Normal thought process present Assessment & Plan Assessment & Plan (1) Encounter for well woman exam with routine gynecological exam: Code(s): Z01.419 - Encounter for gynecological examination (general) (routine) without abnormal findings Category: Medical Plan: Discussed: Current recommendations for pap smears per ASCCP guidelines. Breast awareness, periodic self breast exams and yearly mammogram. Maintain a healthy lifestyle, well balanced diet including Calcium 1,200 mg and Vitamin D 600 IU daily, and routine exercise. Abdominal stretching options to include yoga Cobra pose, also the Melt Method to help with myofascial pain, pain management options. Contact the office with any postmenopausal bleeding. Patient verbalizes understanding and agrees to the plan of care. She was given opportunity to ask questions and all questions were answered to the best of my ability. RTO in 1 year for annual esthetician permanent makeup artist exam. This note is constructed using voice recognition software. While every effort has been made to ensure accuracy, powerhouse laborer errors may have been included. Orders: Orders Pap Smear Today Z01.419 - Encounter for gynecological examination (general) (routine) without abnormal findings Coding Level of Care Code New Pt Prev Care 40-64y(42481) Diagnoses Encounter for well woman exam with routine gynecological exam Z01.419
== END 2024-04-11 13:36 | disposition home or self-care (01) ==
PROVIDERS: PCP Internal Medicine; Visit Provider Advanced Practice Midwife
DX: Z01.419 Encounter for gynecological examination (general) (routine) without abnormal findings (principal)
CPT/HCPCS: 99386

== ENCOUNTER 2024-06-14 09:13 | Outpatient (AMB) | payer BC, OTHER, SELFPAY ==
--- NOTE | 2024-06-14 10:02 | MHC.OFFWIV ---
Intake Vital Signs 06/14/24 10:04 Height 5 ft 4 in Weight 169 lb 4 oz BMI 29.0 BP 130/76 Blood Pressure Location Lt brachial Position Sitting Pulse 81 Pulse Source Pulse Oximeter Temp 98.0 F Temp Source Oral Pulse Oximetry (%) 98 Oxygen Delivery Method Room Air Intake Visit Reasons: EP insect bite/poison debra/cold symp Intake Note: Patient is here for poison debra rash and now has a cold on top her rash. Patient Tobacco Use Status: Never used Tobacco Allergies No Known Allergies Allergy (Verified 06/14/24 10:06) Do you need a note to return to daycare/school/sports/work: No HPI EP insect bite/poison debra/cold symp HPI Details Patient has rash on bilateral posterior forearms and mild rash on left lateral abdomen/ribs Contact/linear streaks patterns She had contact with her brother who has severe rash on much of his body after being out in the rest[place]. He is being treated for poison debra. Patient takes Divya and has been trying hydrocortisone cream She also notes mild cold symptoms [facility] Medical History Rheumatoid factor positive Annual visit for general adult medical examination with abnormal findings Vasomotor symptoms due to menopause Distal paresthesia History of vitamin D deficiency Dyslipidemia Hx of dysfunctional uterine bleeding Acquired hypothyroidism Surgical History H/O tubal ligation Family History (Updated 04/11/24 @ 13:21 by Emilie Chandra CNM) Brother Substance use disorder Liver cirrhosis Paternal Grandmother Diabetes mellitus CAD (coronary artery disease), Onset Age: 90 Maternal Aunt Hypothyroidism Breast cancer Daughter Hyperthyroidism Maternal Grandmother Diabetes mellitus Daughter Bipolar 1 disorder Maternal Uncle Bipolar 1 disorder Father Alcoholism Sister Rheumatoid arthritis Hypothyroidism Chronic interstitial cystitis Anxiety disorder Social History Housing: House Alcohol intake: current Alcohol intake frequency: holidays/special occasions only Patient Tobacco Use Status: Never used Tobacco e-Cigarette/Vaping Use: Never Used service: No Current occupational status: employed Cognitive needs: No Hearing needs: No Vision needs: Yes Review of Systems Const Details: See HPI Physical Exam Vital Signs: Last Vital Signs Temp 98.0 F 06/14/24 10:04 Pulse 81 06/14/24 10:04 BP 130/76 06/14/24 10:04 Pulse Ox 98 06/14/24 10:04 Oxygen Delivery Method Room Air 06/14/24 10:04 BMI result Body Mass Index 29.0 HEENT Other: Mild eyelid erythema Mild nasal congestion with minimal discharge Posterior pharynx is normal No LAD Skin Other: Rash in contact pattern and linear streaks on posterior forearms and also left lateral abdomen/ribs Assessment & Plan Assessment & Plan (1) Contact dermatitis: Code(s): L25.9 - Unspecified contact dermatitis, unspecified cause Plan: Moderate contact dermatitis at posterior forearms and left lateral abdomen/ribs Likely poison debra Will give her short course of prednisone and also a steroid ointment. She is taking Divya but can use Benadryl for the next couple of days in the evenings for itch Clean all close or tools which may have come in contact with poison debra or offending agents Call or return to office or see PCP if not improving or worsening. (2) Viral illness: Code(s): B34.9 - Viral infection, unspecified Plan: Appears to have mild cold Viral illness There is no antibiotic medication for viruses. They must run their course. Most average 5-7 days but 7-10 days is not uncommon and up to 14 days is still possible. A cough is often the last symptom to resolve and this can last for weeks in some cases. Rest Hydrate well - Drink plenty of fluids. Especially water. Tylenol or ibuprofen for muscle aches, headache, fever/discomfort Can use atim-yjl-krnfraj medications for cough such as Delsym or DayQuil. Prescription cough medicines have been shown to be no better. Medications: New betamethasone valerate 0.1% 1 appl topical BID 10 days PRN 45 grams 0RF skin irritation prednisone 40 mg (2 x 20 mg) PO DAILY 5 days 10 tabs 0RF Coding Level of Care Code Est Pt Level 3 (17445) Diagnoses Contact dermatitis L25.9 Viral illness B34.9
[2024-06-14 10:04] VITALS: BP 130/76; PULSE 81; TEMP 36.7; O2SAT 98; BMI 29.0
== END 2024-06-14 10:58 | disposition home or self-care (01) ==
PROVIDERS: PCP Internal Medicine; Visit Provider Family Medicine
DX: L25.9 Unspecified contact dermatitis, unspecified cause (principal); B34.9 Viral infection, unspecified
CPT/HCPCS: 99213

== ENCOUNTER 2024-08-23 07:40 | Outpatient (REF) | payer BC, OTHER, SELFPAY ==
--- NOTE | ~2024-08-23 | MM_ITS ---
EXAMINATION: MM SCREENING DIGITAL BREAST TOMOSYNTHESIS, BILATERAL CLINICAL INFORMATION: Screening. Asymptomatic. COMPARISON: Mammography: Comparison is made with available priors TECHNIQUE: Digital breast mammography with tomosynthesis is performed in both the craniocaudal and mediolateral oblique views along with computer-aided detection (CAD). FINDINGS: The breasts are heterogeneously dense, which may obscure small masses (ACR BI-RADS breast composition Category c). There are no significant masses, abnormal calcifications, or other abnormalities. MM/MM tomosynthesis screening BI IMPRESSION: No mammographic evidence of malignancy. ASSESSMENT: BI-RADS BI-RADS 1 - Negative RECOMMENDATION: Routine annual mammography screening. 1 year F/U This examination should not preclude the clinical evaluation of a suspicious palpable abnormality. This patient's information was entered into a reminder system with a target due date for their next mammogram. Electronically signed by: Rossy Nur DO 09/02/2024 12:50 PM [facility]
[2024-08-23 10:32] LABS: Cholesterol 206 mg/dL (<200); HDL Cholesterol 51 mg/dL (>40); LDL Cholesterol Calculated 144 mg/dL (<100); Triglycerides 57 mg/dL (<150)
[2024-08-23 10:36] LABS: Free T4 (Free Thyroxine) 1.35 ng/dL (0.71-1.85); TSH reflex Free T4 1.78 uIU/mL (0.32-4.0); Vitamin D 25-OH Total 34.5 ng/mL (>30)
== END 2024-08-23 07:41 | disposition home or self-care (01) ==
LOC: HO.MAMMO 07:40
PROVIDERS: PCP Internal Medicine; Visit Provider Internal Medicine
DX: Z12.31 Encounter for screening mammogram for malignant neoplasm of breast (principal); E78.5 Hyperlipidemia, unspecified; E03.9 Hypothyroidism, unspecified; Z86.39 Personal history of other endocrine, nutritional and metabolic disease
CPT/HCPCS: 36415; 77063; 77067; 80061; 82306; 84439; 84443

== ENCOUNTER → 2024-08-23 08:00 | Outpatient (BNV) | payer BC, OTHER, SELFPAY | PROVIDERS: PCP Internal Medicine; Visit Provider Internal Medicine | DX: Z12.31 Encounter for screening mammogram for malignant neoplasm of breast (principal) | CPT/HCPCS: 77063; 77067 ==

== ENCOUNTER 2025-05-20 08:11 | Outpatient (AMB) | payer BC, OTHER, SELFPAY ==
--- OUTSIDE RECORDS SUMMARY | 2025-05-20 08:16 | XMS_ITS ---
Author Name [facility] Organization Unknown Encounters Encounter Type Encounter Reason Primary Diagnosis Location Date Ambulatory Unspecified contact dermatitis due to plants, except food Unspecified contact dermatitis due to plants, except food [facility] 03/12/2024 Ambulatory Chest pain on breathing [facility] 05/08/2023 Ambulatory Allergic contact dermatitis due to plants, except food [facility] 05/21/2022 Care Team Organization Name Specialty Phone Email Start Date End Da te [facility]NA [facility]NE Primary Care 03/12/2024 [facility] PCP,No Primary Care 05/08/2023 12/31/2024 [facility] NO PCP Primary Care 05/08/2023 05/08/2023 [facility] NO PCP Primary Care 05/21/2022 05/21/2022 [facility] PCP,No Primary Care 05/21/2022
--- OUTSIDE RECORDS SUMMARY | 2025-05-20 08:17 | XMS_ITS | Clinical Summary ---
Author Organization [facility] Address [address] [place] [address] Care Team Providers Care Production Control Planner Name Role Phone Jumana Rey MD Primary Care Provider Allergies No known active allergies Medications levothyroxine (SYNTHROID, LEVOTHROID) 75 MCG tablet Take 1 tablet (75 mcg total) by mouth daily. 04/15/2022 Active predniSONE (DELTASONE) 10 MG tabletIndicatio ns:Rhus dermatitis Take the number of tablets per day per schedule given in tapering dose for 2 weeks, and always take with food. 55 tablet 03/12/2024 Active Active Problems No known active problems Social History Tobacco Use Types Packs/Day Years Used Date Smoking Tobacco: Never Assessed Comments Unknown Sex and Gender Information Value Date Recorded Sex Assigned at Female 09/13/2022 10:56 AM EST Legal Sex Female 1:03 PM EDT Gender Identity Female 09/13/2022 10:56 AM EST Sexual Orientation Asexual 09/13/2022 10 :56 AM EST Last Filed Vital Signs Vital Sign Reading Time Taken Comments Blood Pressure 141/98 03/12/2024 2:02 PM EDT Pulse 88 03/12/2024 2:02 PM EDT Temperature 37.1 C (98.7 F) 03/12/2024 2:02 PM EDT Respiratory Rate 16 03/12/2024 2:02 PM EDT Oxygen Saturation 98% 03/12/2024 2:02 PM EDT Inhaled Oxygen Concentration - - Weight 78 kg (172 lb) 03/12/2024 2:02 PM EDT Height 162.6 cm (5' 4 ) 03/12/2024 2:02 PM EDT Body Mass Index 29.52 03/12/2024 2:02 PM EDT Plan of Treatment Health Maintenance Due Date Last Done Comments Hepatitis C Virus Screening 1965 HIV Screening 1978 DTaP/Tdap/Td Vaccines (1 - Tdap) 01/29/1984 Pap Smear (Ages 21-65) 1986 Mammogram 2005 Colonoscopy 2010 Pneumococcal Vaccines 50+ (1 of 1 - PCV) 2015 Zoster (Shingles) Vaccine (1 of 2) 2015 COVID-19 Vaccine (3 - 2023-2 5 season) 2024 07/07/2022, 09/14/2021 Influenza Vaccine 05/15/2025 07/01/2023, 07/07/2022, 07/31/2021 RSV Vaccine 60 years and older and Patients (1 - 1-dose 75+ series) 01/29/2040 Hepatitis B Vaccines Aged Out No long er eligible based on patient's age to complete this topic Insurance [facility] OUT STATE - PPO Care Teams Production Control Planner Relationship Specialty Start Date End Date Jumana Rey MD [address] [place] [address] PCP - General Internal Medicine 03/12/24
--- OUTSIDE RECORDS SUMMARY | 2025-05-20 08:17 | XMS_ITS | Clinical Summary ---
Author Organization [facility] Address [address] [place] [address] Care Team Providers Care Fitness And Wellness Instructor Name Role Phone Dara Ritchie Primary Care Provider [phone] Allergies No known active allergies Medications Levothyroxine Sodium 25 MCG/ML Solution Take by mouth Active Active Problems No known active problems Social History Tobacco Use Types Packs/Day Years Used Date Smoking Tobacco: Never Smokeless Tobacco: Never Comments No Sex and Gender Information Value Date Recorded Sex Assigned at Not on file Legal Sex Female 9:31 AM EDT Gender Identity Not on file Sexual Orientation Not on file Last Filed Vital Signs Vital Sign Reading Time Taken Comments Blood Pressure 128/80 10/09/2019 3:18 PM EST Pulse 71 10/09/2019 3:18 PM EST Temperature 36.6 C (97.9 F) 10/09/2019 3:18 PM EST Respiratory Rate 16 10/09/2019 3:18 PM EST Oxygen Saturation - - Inhaled Oxygen Concentration - - Weight - - Height - - Body Mass Index - - Plan of Treatment Health Maintenance Due Date Last Done Comments Hepatitis C Screening 1965 Pap Smear 1981 DTaP/Tdap/Td (1 - Tdap) 1983 Mammogram/Breast Imaging 2005 Pneumococcal 50+ years (1 of 1 - PCV) 2015 Zoster (Shingrix) (1 of 2) 2015 COVID-19 Vaccine ( - 2023-2 5 season) 2024 Influenza (#1) 2025 RSV (1 - 1-dose 75+ series) 01/29/2040 HPV Vaccine (No Doses Required) Completed Hep A Aged Out No longer eligi ble based on patient's age to complete this topic Hep B Aged Out No longer eligi ble based on patient's age to complete this topic Hib Aged Out No longer eligi ble based on patient's age to complete this topic Meningococcal ACWY Aged Out No longer eligible based on patient's age to complete this topic Zoster (Zostavax) Discontinued Insurance [employer] PPO Care Teams Fitness And Wellness Instructor Relationship Specialty Start Date End Date Dara Ritchie [facility] [address] [id number] PCP - General Internal Medicine 10/09/19
--- NOTE | 2025-05-20 08:46 | A.OFFPC_ITS ---
Vital Signs 05/20/25 08:55 Height 5 ft 4 in Weight 179 lb BMI 30.7 BP 138/80 Blood Pressure Location Rt brachial Position Sitting Respiration 15 Pulse 85 Pulse Source Pulse Oximeter Temp 98.2 F Temp Source Oral Pulse Oximetry (%) 99 Oxygen Delivery Method Room Air Intake Visit Reasons: PE Intake Note: Pt is here today for her PE: last mammogram 08/23/24, cologuard 10/03/23, papsmear 04/11/24 Allergies poison debra extract Adverse Reaction (Verified 05/20/25 09:11) rash poison oak extract Adverse Reaction (Verified 05/20/25 09:11) rash Medication List - Last Reconciled 05/20/25 by Jumana Rey MD fexofenadine (Divya Allergy) 180 mg PO DAILY levothyroxine 100 mcg PO DAILY Tobacco use date assessed: 05/20/25 Dental Screening Dental Screen Date: 05/20/25 Did you have a dental visit in the last 12 months?: Yes Did you have a dental problem in the last 6 months where you did not have access to dental care?: Yes Was dental information given to patient?: Patient has dentist HPI PE HPI Details - The patient is a 60-year-old female pr esenting for a physical examination and management of chronic conditions. - Hypercholesterolemia: The patient has a history of elevated cholesterol levels, with the last measurement indicating high levels of LDL cholesterol. - Leukopenia: The patient has a tendency for low white blood cell count, which has been monitored over time. No frequent infections noted - Menopausal symptoms: The patient previ ously experienced severe hot flashes, which have now resolved. - Allergic rhinitis: The patient uses fe xofenadine as needed for allergy symptoms, particularly during high pollen seasons or environmental triggers like wildfires. - Hypothyroidism: The patient is current ly on levothyroxine 100 mcg daily and reports no palpitations or other symptoms. - Preventative care: The patient is up t o date with vaccinations and screenings, including a mammogram scheduled for August and a Cologuard test due next year. She is also up-to-date with her cervical cancer screening, just done a year ago with normal findings, due for recheck again in 2028 [facility] Medical History (Updated 05/20/25 @ 09:24 by Jumana Rey MD) Leukopenia Rheumatoid factor positive Annual visit for general adult medical examination with abnormal findings Vasomotor symptoms due to menopause History of vitamin D deficiency Dyslipidemia Hx of dysfunctional uterine bleeding Acquired hypothyroidism Surgical History H/O tubal ligation Family History Brother Substance use disorder Liver cirrhosis Paternal Grandmother Diabetes mellitus CAD (coronary artery disease), Onset Age: 90 Maternal Aunt Hypothyroidism Breast cancer Daughter Hyperthyroidism Maternal Grandmother Diabetes mellitus Daughter Bipolar 1 disorder Maternal Uncle Bipolar 1 disorder Father Alcoholism Sister Rheumatoid arthritis Hypothyroidism Chronic interstitial cystitis Anxiety disorder Social History Housing: House Alcohol intake: current Alcohol intake frequency: holidays/special occasions only Patient Tobacco Use Status: Never used Tobacco e-Cigarette/Vaping Use: Never Used service: No Current occupational status: employed Cognitive needs: No Hearing needs: No Vision needs: Yes Questionnaire PHQ-9 Over the last 2 weeks, how often have you been bothered by any of the following problems? 1. Little interest or pleasure in doing things: not at all 2. Feeling down, depressed, or hopeless: not at all 3. Trouble falling or staying asleep, or sleeping too much: not at all 4. Feeling tired or having little energy: not at all 5. Poor appetite or overeating: not at all 6. Feeling bad about yourself - or that you are a failure or have let yourself or your family down: not at all 7. Trouble concentrating on things, such as reading the newspaper or watching television: not at all 8. Moving or speaking so slowly that other people could have noticed. Or the opposite - being so fidgety or restless that you have been moving around a lot more than usual: not at all 9. Thoughts that you would be better off or of hurting yourself in some way: not at all Total score: 0 Depression Screening Interpretation: Negative Depression Screening Done: Yes 74879 - PHQ-9 Billing: Yes Source: Developed by Drs. Delon Garcia, Chyna Acosta, Maximilian Mcmahon and colleagues, with an educational dereje from [employer]. Thrive Questionnaire Date Thrive assessed: 05/20/25 I am a: Patient What is your living situation today?: I have a steady place to live Within the past 12 months, did the food you bought not last and you didn't have the money to get more?: Never true Within the past 12 months, did you worry whether your food would run out before you got money to buy more?: Never true Do you have trouble paying for medicines?: No Do you have trouble getting transportation to medical appointments?: No Do you have trouble paying your heating and electricity bill?: No Do you have trouble taking care of your child, family member or friend?: No Do you have trouble with day-to-day activities such as bathing, preparing meals, shopping, managing finances, etc.?: No Are you currently unemployed and looking for a job?: No Are you interested in more education?: No Please select the resources that you would like help with: None THRIVE Score: 0 HENRY-7 AMB Questionnaire HENRY-7 Date HENRY - 7 assessed: 12/26/23 Source: Developed by Drs. Delon Garcia, Chyna Acosta, Maximilian Mcmahon and colleagues, with an educational dereje from [employer]. Review of Systems Const Denies body aches, Denies fatigue, Denies headache(s) and Denies weakness Eyes Reports blurry vision (For near vision only) and Denies change in vision ENT Denies dizziness, Denies headache(s), Denies nasal congestion and Denies nasal discharge Card Denies chest pain, Denies lightheadedness, Denies palpitations and Denies dyspnea Resp Denies chest congestion, Denies cough, Denies dyspnea and Denies wheezing GI Denies abdominal pain, Denies change in bowel habits and Denies heartburn Denies hematuria, Denies urinary frequency, Denies dysuria and Denies urinary urgency Musc Reports no additional complaints Skin/Breast Denies breast pain, Denies breast mass, Denies lesions and Denies rash Neuro Denies dizziness, Denies headache(s) and Denies weakness Psych Reports no additional complaints Endo Denies fatigue, Denies polydipsia, Denies polyuria and Denies palpitations Renard/Lymph Denies easy bruising Aller/Immun Denies seasonal rhinorrhea and Denies wheezing Physical exam (Primary Care) Vital Signs: Last Vital Signs Temp 98.2 F 05/20/25 08:55 Pulse 85 05/20/25 08:55 Resp 15 05/20/25 08:55 BP 138/80 05/20/25 08:55 Pulse Ox 99 05/20/25 08:55 Oxygen Delivery Method Room Air 05/20/25 08:55 BMI result Body Mass Index 30.7 Tobacco/Smoking Status: Tobacco use Status Tobacco use date assessed 05/20/25 05/20/25 08:58 Patient Tobacco Use Status Never used Tobacco 05/20/25 08:46 e-Cigarette/Vaping Use Never Used 05/20/25 08:46 PHQ-9: PHQ-9 Score PHQ-9: Total score 0 05/20/25 09:11 Depression Screening Interpretation: Negative Thrive Assessment: Date of Thrive Assessment Date Thrive assessed 05/20/25 05/20/25 08:46 Advance Care Planning discussion: Completed/Scanned Date of discussion: 05/20/25 Who was present: Patient Forms completed: Health Care Proxy Time spent: 16-45 minutes Actual minutes spent: 2 Const Other: Alert oriented x3, no acute distress Orientation/consciousness: patient oriented x3 HENMT Head: Yes normocephalic Ears: TM's normal bilaterally and EAC's normal General nose exam: Normal external nose present Face and sinus: Yes face symmetric Mouth: Normal oral and palatal mucosa present and moist mucous membranes Eyes General: appearance normal, both eyes and all related structures Neck Other: Supple, no lymphadenopathy palpated, thyroid gland nontender, nonpalpable Chest Breast/axilla palpation: normal palpation of the breasts Resp Other: Clear to auscultation bilaterally Cardio Other: S1-S2 present regular rate and rhythm, no murmurs GI Other: Above sounds, soft, nontender, no mass palpated Other: Referred to OBGYN routine Pap pelvic exam Back/Spine/Pelvis Back: No back tenderness Skin General skin exam: no rashes or lesions noted Neuro General: patient oriented x3, gait normal, tone normal, moves all extremities, Normal light touch and pain sensation, no focal motor deficits and CN's II-XI intact bilaterally Extrem Other: No gross bone deformity or joint swelling seen, negative Tinel's or Phalen sign General: Yes full ROM, Yes no joint enlargement and Yes normal gait Psych Appearance: grossly normal and well kempt Mental Status: mental status grossly normal Speech and movement: Normal speech and movement present Affect: normal affect Coding Level of Care Code Est Pt Prev Care 40-64y(83064) Diagnoses Annual visit for general adult medical examination with abnormal findings Z00.01 Acquired hypothyroidism E03.9 Dyslipidemia E78.5 Leukopenia, unspecified type D72.819 Leukopenia type: unspecified Advance directive discussed with patient Z71.89 Additional Codes Vital Signs *Quality* - Advance Care Planning discussion: Completed/Scanned ([id number]) Vital Signs *Quality* - Time spent: 16-45 minutes ([id number]) PHQ-9 - 64515 - PHQ-9 Billing: Yes ([id number]) Assessment & Plan Assessment & Plan (1) Annual visit for general adult medical examination with abnormal findings: Code(s): Z00.01 - Encounter for general adult medical examination with abnormal findings Category: Medical (2) Acquired hypothyroidism: Code(s): E03.9 - Hypothyroidism, unspecified Category: Medical (3) Dyslipidemia: Code(s): E78.5 - Hyperlipidemia, unspecified Category: Medical (4) Leukopenia: Code(s): D72.819 - Decreased white blood cell count, unspecified Category: Medical Qualifiers: Leukopenia type: unspecified Qualified Code(s): D72.819 - Decreased white blood cell count, unspecified (5) Advance directive discussed with patient: Code(s): Z71.89 - Other specified counseling Plan: Initiated the conversation about Advanced Directives. Advanced Directives help patients prepare for current and future decisions about their medical treatment and place of care. Discussed with patient that it is a process where a patients current condition and prognosis are reviewed, their wishes for information regarding their illness are elicited, and likely medical dilemmas are presented and options discussed. Healthcare proxy form completed today. The form can be amended as needed, reviewed yearly and make changes as needed Plan The patient will continue with her current regimen of levothyroxine 100 mcg daily for hypothyroidism, as she reports no adverse symptoms. A comprehensive blood panel will be conducted to monitor cholesterol levels, white blood cell count, and thyroid function. Preventative care measures include scheduling a mammogram in August and a Cologuard test next year. The patient is advised to continue using fexofenadine as needed for allergic rhinitis and to maintain her current vaccination schedule. Patient was informed and verbally consented to the use of an ambient scribe for clinic note documentation during this visit. Orders: Orders Complete Blood Count Auto Diff 05/20/25 D72.819 - Decreased white blood cell count, unspecified, E03.9 - Hypothyroidism, unspecified, E78.5 - Hyperlipidemia, unspecified, Z00.01 - Encounter for general adult medical examination with abnormal findings, Z86.39 - Personal history of other endocrine, nutritional and metabolic disease Alanine Aminotransferase 05/20/25 D7.819 - Decreased white blood cell count, unspecified, E03.9 - Hypothyroidism, unspecified, E78.5 - Hyperlipidemia, unsp ecified, Z00.01 - Encounter for general adult medical examination with abnormal findings, Z86.39 - Personal history of other endocrine, nutritional and metabolic disease Aspartate Amino Transferase 05/20/25 D72.819 - Decreased white blood cell count, unspecified, E03.9 - Hypothyroidism, unspecified, E78.5 - Hyperlipidemia, unspecified, Z00.01 - Encounter for general adult medical examination with abnormal findings, Z86.39 - Personal history of other endocrine, nutritional and metabolic disease Thyroid Stimulating Hormone 05/20/25 D72.819 - Decreased white blood cell count, unspecified, E03.9 - Hypothyroidism, unspecified, E78.5 - Hyperlipidemia, unspecified, Z00.01 - Encounter for general adult medical examination with abnormal findings, Z86.39 - Personal history of other endocrine, nutritional and metabolic disease Free T4 (Free Thyroxine) 05/20/25 D72.819 - Decreased white blood cell count, unspecified, E03.9 - Hypothyroidism, unspecified, E78.5 - Hyperlipidemia, unspecified, Z00.01 - Encounter for general adult medical examination with abnormal findings, Z86.39 - Personal history of other endocrine, nutritional and metabolic disease Basic Metabolic Panel Fasting 05/20/25 D72.819 - Decreased white blood cell count, unspecified, E03.9 - Hypothyroidism, unspecified, E78.5 - Hyperlipidemia, unspecified, Z00.01 - Encounter for general adult medical examination with abnormal findings, Z86.39 - Personal history of other endocrine, nutritional and metabolic disease Lipid Panel 05/20/25 D72.819 - Decreased white blood cell count, unspecified, E03.9 - Hypothyroidism, unspecified, E78.5 - Hyperlipidemia, unspecified, Z00.01 - Encounter for general adult medical examination with abnormal findings, Z86.39 - Personal history of other endocrine, nutritional and metabolic disease Vitamin D 25-OH Total 05/20/25 D72.819 - Decreased white blood cell count, unspecified, E03.9 - Hypothyroidism, unspecified, E78.5 - Hyperlipidemia, unspecified, Z00.01 - Encounter for general adult medical examination with abnormal findings, Z86.39 - Personal history of other endocrine, nutritional and metabolic disease
[2025-05-20 08:55] VITALS: BP 138/80; PULSE 85; RESP 15; TEMP 36.8; O2SAT 99; BMI 30.7
== END 2025-05-20 09:25 | disposition home or self-care (01) ==
LOC: HO.HMCC 08:11
PROVIDERS: PCP Internal Medicine; Visit Provider Internal Medicine
DX: Z00.01 Encounter for general adult medical examination with abnormal findings (principal); E03.9 Hypothyroidism, unspecified; E78.5 Hyperlipidemia, unspecified; D72.819 Decreased white blood cell count, unspecified; Z71.89 Other specified counseling; Z00.00 Encounter for general adult medical examination without abnormal findings

== ENCOUNTER 2025-05-20 08:11 | Outpatient (REF) | payer BC, OTHER, SELFPAY ==
[2025-05-20 10:07] LABS: MANUAL DIFF FLAG NO
[2025-05-20 10:16] LABS: Hematocrit 40.9 % (37.0-47.0); Hemoglobin 13.2 g/dl (12.0-16.0); Imm Gran Abs Auto 0.01 X10*3/uL (0.00-0.03); Imm Gran Pct Auto 0.2 % (0.0-0.4); Lymphocytes Absolute Auto 2.2 X10*3/uL (1.2-4.9); Mean Corpuscular HGB Conc 32.3 g/dl (31.0-35.0); Mean Corpuscular Hemoglobin 26.9 pg (27.0-33.0); Mean Corpuscular Volume 83.3 fL (80.0-98.0); NRBC Abs Auto 0.000 X10*3/uL (0.0-0.012); NRBC Pct Auto 0.0 /100WBC (0.0-0.2); Platelet Count 287 X10*3/uL (160-400); Red Blood Count 4.91 X10*6/uL (4.20-5.50); White Blood Count 5.1 X10*3/uL (4.8-10.8)
[2025-05-20 11:36] LABS: Alanine Aminotransferase 28 U/L (0-31); Anion Gap 12 (12-20); Aspartate Amino Transferase 30 U/L (5-31); Blood Urea Nitrogen 12 mg/dL (9-16); Calcium 9.4 mg/dL (8.4-10.2); Carbon Dioxide 27 mmol/L (22-29); Chloride 108 mmol/L (96-108); Cholesterol 218 mg/dL (<200); Estimated Glomerular Filt Rate > 60; HDL Cholesterol 48 mg/dL (>40); Potassium 4.5 mmol/L (3.3-5.1); Sodium 142 mmol/L (135-145); Triglycerides 81 mg/dL (<150)
[2025-05-20 11:44] LABS: Free T4 (Free Thyroxine) 1.07 ng/dL (0.71-1.85); Thyroid Stimulating Hormone 5.49 uIU/mL (0.32-4.0)
== END 2025-05-20 08:12 | disposition home or self-care (01) ==
LOC: HO.HMGCLDS 08:11
PROVIDERS: PCP Internal Medicine; Visit Provider Internal Medicine
DX: Z00.01 Encounter for general adult medical examination with abnormal findings (principal); D72.819 Decreased white blood cell count, unspecified; E03.9 Hypothyroidism, unspecified; E78.5 Hyperlipidemia, unspecified; Z71.89 Other specified counseling; Z86.39 Personal history of other endocrine, nutritional and metabolic disease
CPT/HCPCS: 36415; 80048; 80061; 82306; 84439; 84443; 84450; 84460; 85025; 96127

== ENCOUNTER 2025-08-29 07:50 | Outpatient (REF) | payer BC, SELFPAY ==
--- OUTSIDE RECORDS SUMMARY | 2025-08-29 07:54 | XMS_ITS | Clinical Summary ---
Author Organization [facility] Address [address] [place] [address] Care Team Providers Care Laborer Brooder Farm Name Role Phone Jumana Rey MD Primary [...] Zoster (Shingles) Vaccine (1 of 2) 2015 Influenza Vaccine 05/15/2025 07/01/2023, 07/07/2022, 07/31/2021 COVID-19 Vaccine (3 - 2024-2 6 season) 2025 07/07/2022, 09/14/2021 RSV Vaccine 50 years and older and Patients (1 - 1-dose 75+ series) 01/29/2040 Hepatitis B Vaccines Aged Out No long er eligible based on patient's age to complete this topic Insurance [facility] OUT STATE - PPO Care Teams Laborer Brooder Farm Relationship Specialty Start Date End Date Jumana Rey MD [address] [place] [address] PCP - General Internal Medicine 03/12/24
--- OUTSIDE RECORDS SUMMARY | 2025-08-29 07:54 | XMS_ITS | Clinical Summary ---
Author Organization [facility] Address [address] [place] [address] Care Team Providers Care Jackhammer Operator Name Role Phone Dara Ritchie Primary Care Provider [phone] Allergies No known active allergies Medications Levothyroxine [...] of 2) 2015 COVID-19 Vaccine ( - 2024-2 6 season) 2025 Influenza (#1) 2025 RSV (1 - 1-dose [...] (Zostavax) Discontinued Insurance [employer] PPO Care Teams Jackhammer Operator Relationship Specialty Start Date End Date Dara Ritchie [facility] [address] [id number] PCP - General Internal Medicine 10/09/19
== END 2025-08-29 07:51 | disposition home or self-care (01) ==
LOC: HO.MAMMO 07:50
PROVIDERS: PCP Internal Medicine; Visit Provider Internal Medicine
DX: Z12.31 Encounter for screening mammogram for malignant neoplasm of breast (principal)
CPT/HCPCS: 77063; 77067

== ENCOUNTER → 2025-08-29 08:15 | Outpatient (BNV) | payer BC, SELFPAY | PROVIDERS: PCP Internal Medicine; Visit Provider Internal Medicine | DX: Z12.31 Encounter for screening mammogram for malignant neoplasm of breast (principal) | CPT/HCPCS: 77063; 77067 ==